=== PATIENT | male | born 1995 | race Two or more races ===

== ENCOUNTER 2022-08-08 13:24 | Emergency (ER) | payer OTHER ==
[~2022-08-08] VITALS: Ht 185.4 cm; Wt 92.8 kg
[2022-08-08 16:28] VITALS: BP 148/78
[2022-08-08] MEDS ORDERED: IBUP800T26 PO (16:40)
[2022-08-08] MEDS ORDERED: HYDR-4798 PO (16:40)
[2022-08-08] MEDS ORDERED: IBUPROFEN 800 MG TAB PO ONE (16:45)
== END 2022-08-08 16:48 | disposition home or self-care (01) ==
LOC: ER 13:24 → EDBD 13:24 → ER 16:48
DX: S39.012A Strain of muscle, fascia and tendon of lower back, initial encounter (principal); V43.92XA Unspecified car occupant injured in collision with other type car in traffic accident, initial encounter; Y93.89 Activity, other specified; Y92.410 Unspecified street and highway as the place of occurrence of the external cause; Y99.8 Other external cause status
CPT/HCPCS: 72100